=== PATIENT | male | born 1990 | race Caucasian/White ===

== ENCOUNTER 2016-12-21 00:40 | Emergency (ER) | payer OTHER ==
[2016-12-21 01:08] VITALS: BP 135/84; PULSE 64; TEMP 97.9; BMI 28.2
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
[2016-12-21] MEDS ORDERED: IBUPROFEN 600 MG TABLET (FP) PO ONE ×2 (02:56→03:02)
== END 2016-12-21 03:05 | disposition home or self-care (01) ==
LOC: JER 00:40
DX: S29.012A Strain of muscle and tendon of back wall of thorax, initial encounter (principal); S21.209A Unspecified open wound of unspecified back wall of thorax without penetration into thoracic cavity, initial encounter; V43.52XA Car driver injured in collision with other type car in traffic accident, initial encounter; Y92.414 Local residential or business street as the place of occurrence of the external cause; Y93.89 Activity, other specified; Y99.0 Civilian activity done for income or pay
CPT/HCPCS: 99281-25

== ENCOUNTER 2019-12-19 18:56 | Inpatient (IN) | payer BC, OTHER ==
[2019-12-19] MEDS ORDERED: SODIUM CHLORIDE 0.9% 500 ML INFUS.BAG IV ONE (19:33)
--- NOTE | 2019-12-19 19:33 | PDOC ---
Rapid Medical Evaluation Time Seen by Provider: 12/19/19 19:31 Medical Evaluation: Allergies Allergy/AdvReac Type Severity Reaction Status Date / Time No Known Allergies Allergy Verified 12/21/16 00:56 12/19/19 19:31 This patient had rapid medical evaluation in triage cc: sent by pmd due to abnormal lab results HPI: Patient reports sent to ed due to elevated b/p cpk and dark colored urine. Also reports bodyaches PE: NADF unlabored breathing heart s1s2, Orders: labs, iv access, ns bolus This patient will proceed to ed for further evaluation. Discharge Disposition - Diagnosis Abnormal laboratory test - Referrals - Patient Instructions - Post Discharge Activity
--- NOTE | 2019-12-19 21:49 | PDOC ---
*Physical Exam - Vital Signs Last Vital Signs Temp Pulse Resp BP Pulse Ox 98.5 F 91 H 19 149/82 96 12/19/19 19:29 12/19/19 19:29 12/19/19 19:29 12/19/19 19:29 12/19/19 19:29 ED Treatment Course - LABORATORY CBC & Chemistry Diagram: 12/19/19 21:45 12/19/19 21:45 Medical Decision Making - Medical Decision Making 12/19/19 21:49 Patient seen by the advanced practice provider under my supervision. Ancillary testing reviewed as necessary. I agree with plan as outlined by the advanced practice provider. Discharge - Discharge Information Problems reviewed: Yes Clinical Impression/Diagnosis: Elevated CPK, Muscle pain Rhabdomyolysis Qualifiers: Rhabdomyolysis type: non-traumatic Qualified Code(s): M62.82 - Rhabdomyolysis - Follow up/Referral Referrals: Garry Britton MD [Primary Care Provider] - - Patient Discharge Instructions - Post Discharge Activity
--- NOTE | 2019-12-19 22:00 | PDOC ---
History of Present Illness - General Chief Complaint: Abnormal Lab Results (Outside) Stated Complaint: SENT BY URGENT CARE/ ABNORMAL LABS Time Seen by Provider: 12/19/19 19:31 History Source: Patient - History of Present Illness Initial Comments: 12/19/19 21:58 29 year old male bodyaches for 1 weeks, patient reports having URI symptoms prior to that. Urine has been dark for 1 week. + nausea. patient reports that he went to urgent care who sent patient to the ER for elevated. CPK 40,000. 12/19/19 22:02 Past History - Past Medical History Allergies/Adverse Reactions: Allergies Allergy/AdvReac Type Severity Reaction Status Date / Time No Known Allergies Allergy Verified 12/21/16 00:56 Home Medications: Ambulatory Orders NK [No Known Home Medication] 12/21/16 COPD: No - Psycho Social/Smoking Cessation Hx Smoking History: Never smoked Have you smoked in the past 12 months: No Hx Alcohol Use: No Drug/Substance Use Hx: No Review of Systems - Review of Systems Able to Perform ROS?: Yes Is the patient limited Irish proficient: No Constitutional: Yes: Other (boduyaches) Respiratory: No: Symptoms reported, See HPI, Cough, Orthopnea, Shortness of Breath, SOB with Exertion, SOB at Rest, Stridor, Wheezing, Productive cough, Hemoptysis, Other ABD/GI: No: Symptoms Reported, See HPI, Abdominal Distended, Abd. Pain w/ defecation, Blood Streaked Bowels, Constipated, Diarrhea, Difficulty Swallowing , Nausea, Poor Appetite, Poor Fluid Intake, Rectal Bleeding, Vomiting, Indigestion, Abdominal cramping, Tarry Stools, Other Neurological: No: Symptoms reported, See HPI, Headache, Numbness, Paresthesia, Pre-Existing Deficit, Seizure, Tingling, Tremors, Weakness, Unsteady Gait, Ataxia, Dizziness, Other *Physical Exam - Vital Signs Last Vital Signs Temp Pulse Resp BP Pulse Ox 98.5 F 91 H 19 149/82 96 12/19/19 19:29 12/19/19 19:29 12/19/19 19:29 12/19/19 19:29 12/19/19 19:29 - Physical Exam General Appearance: Yes: Appropriately Dressed Respiratory/Chest: positive: Lungs Clear, Normal Breath Sounds Cardiovascular: positive: Regular Rhythm, Regular Rate Musculoskeletal: positive: Normal Inspection Extremity: positive: Normal Capillary Refill, Normal Inspection, Normal Range of Motion Integumentary: positive: Normal Color, Dry, Warm Neurologic: positive: Fully Oriented, Alert, Normal Mood/Affect ED Treatment Course - LABORATORY CBC & Chemistry Diagram: 12/19/19 21:45 12/19/19 21:45 - Medications Given in the ED: ED Medications Discontinued Medications Generic Name Dose Route Start Last Admin Trade Name Freq PRN Reason Stop Dose Admin Sodium Chloride 1,000 ml 12/19/19 19:33 12/19/19 21:49 Normal Saline - IV 12/19/19 19:34 1,000 ml ONCE ONE Administration Medical Decision Making - Medical Decision Making 12/19/19 22:01 A: rhabdomylosis P: cbc cardiac cmp UA IVF cardiac monitoring patient admitted under hospitalist service Discharge - Discharge Information Problems reviewed: Yes Clinical Impression/Diagnosis: Elevated CPK, Muscle pain Rhabdomyolysis Qualifiers: Rhabdomyolysis type: non-traumatic Qualified Code(s): M62.82 - Rhabdomyolysis - Admission Yes - Follow up/Referral - Patient Discharge Instructions - Post Discharge Activity
[2019-12-19 22:37] LABS: BASO % 0.6 % (0-2.0); EOS % 3.1 % (0-4.5); HEMATOCRIT 38.2 % (35.4-49); HEMOGLOBIN 12.9 GM/dL (11.7-16.9); LYMPH % 21.7 % (8-40); MCH 29.9 pg (25.7-33.7); MCHC 33.8 g/dl (32.0-35.9); MEAN CELL VOLUME 88.3 fl (80-96); MEAN PLT VOLUME 9.4 fl (7.5-11.1); MONO % 9.4 % (3.8-10.2); NEUT % 65.2 % (42.8-82.8); PLATELET COUNT 190 K/MM3 (134-434); RBC 4.32 M/mm3 (4.00-5.60); RDW 13.7 % (11.9-15.9); WHITE BLOOD COUNT 6.3 K/mm3 (4.0-10.0)
[2019-12-19 23:42] LABS: ALBUMIN 2.8 g/dl (3.4-5.0); ALK PHOS 55 U/L (45-117); ANION GAP 7 MMOL/L (8-16); BILIRUBIN,TOTAL 0.4 mg/dL (0.2-1); BLOOD UREA NITROGEN 15.6 mg/dL (7-18); CALCIUM 8.2 mg/dL (8.5-10.1); CHLORIDE 106 mmol/L (98-107); CO2 25 mmol/L (21-32); CREATININE 0.8 mg/dL (0.55-1.3); GLUCOSE,RANDOM 109 mg/dL (74-106); POTASSIUM 4.8 mmol/L (3.5-5.1); SGOT/AST 447 U/L (15-37); SGPT/ALT 281 U/L (13-61); SODIUM 138 mmol/L (136-145); TOT PROT 6.2 g/dl (6.4-8.2)
[2019-12-19] MEDS ORDERED: SODIUM CHLORIDE 1,000 ML IV SCH (23:45)
--- NOTE | 2019-12-20 02:23 | HP ---
CHIEF COMPLAINT: dark urine PCP: Garry Kellogg HISTORY OF PRESENT ILLNESS: 29 y.o. M no significant PMH presenting from [facility] urgent care for dark urine & CK in 40,000's. The patient endorsed having URI symptoms (son is sick contact ) for the past few days w/ generalized myalgias, fevers, chills. Today he says the URI has improved but the generalized myalgias persist, mainly in his lower extremities. Patient denies recent traumas/ falls/ pedestrian or MVA's/ stressful exercise events. 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 ER course was notable for: (1) 1L NS (2) CK >14,000 (3) Recent Travel: denies PAST MEDICAL HISTORY: none PAST SURGICAL HISTORY: none Social History: Smoking: denies Alcohol: denies Drugs: denies Allergies No Known Allergies Allergy (Verified 12/21/16 00:56) Family hx: father- lupus HOME MEDICATIONS: Home Medications Medication Instructions Recorded NK [No Known Home Medication] 12/21/16 REVIEW OF SYSTEMS CONSTITUTIONAL: Absent: fever, chills, diaphoresis, generalized weakness, malaise, loss of appetite, weight change HEENT: Absent: rhinorrhea, nasal congestion, throat pain, throat swelling, difficulty swallowing, mouth swelling, ear pain, eye pain, visual changes CARDIOVASCULAR: Absent: chest pain, syncope, palpitations, irregular heart rate, lightheadedness , peripheral edema RESPIRATORY: Absent: cough, shortness of breath, dyspnea with exertion, orthopnea, wheezing, stridor, hemoptysis GASTROINTESTINAL: Absent: abdominal pain, abdominal distension, nausea, vomiting, diarrhea, constipation, melena, hematochezia GENITOURINARY: dark yellow/brown urine Absent: dysuria, frequency, urgency, hesitancy, hematuria, flank pain, genital pain MUSCULOSKELETAL: Absent: myalgia, arthralgia, joint swelling, back pain, neck pain SKIN: Absent: rash, itching, pallor HEMATOLOGIC/IMMUNOLOGIC: Absent: easy bleeding, easy bruising, lymphadenopathy, frequent infections ENDOCRINE: Absent: unexplained weight gain, unexplained weight loss, heat intolerance, cold intolerance NEUROLOGIC: Absent: headache, focal weakness or paresthesias, dizziness, unsteady gait, seizure, mental status changes, bladder or bowel incontinence PSYCHIATRIC: Absent: anxiety, depression, suicidal or homicidal ideation, hallucinations. PHYSICAL EXAMINATION Vital Signs - 24 hr 12/19/19 19:29 Temperature 98.5 F Pulse Rate 91 H Respiratory 19 Rate Blood Pressure 149/82 O2 Sat by Pulse 96 Oximetry (%) GENERAL: Awake, alert, and fully oriented, in no acute distress. HEENT: NCAT. MMM. Conjunctiva clear. LUNGS: Breath sounds equal, clear to auscultation bilaterally. No wheezes, and no crackles. No accessory muscle use. HEART: Regular rate and rhythm, normal S1 and S2 without murmur, rub or gallop. ABDOMEN: Soft, nontender, not distended, normoactive bowel sounds. MUSCULOSKELETAL: Normal range of motion at all joints. Diffuse myalgias b/l LE > UE's. EXTREMITIES: 2+ pulses, warm, well-perfused. No cyanosis. No peripheral edema. NEUROLOGICAL: Cranial nerves II-XII intact. Normal speech. Normal gait. PSYCHIATRIC: Cooperative. Good eye contact. Appropriate mood and affect. SKIN: Warm, dry, normal turgor. No rashes/ lesions noted. Laboratory Results - last 24 hr Laboratory Last Values WBC 6.3 K/mm3 (4.0-10.0) 12/19/19 21:45 RBC 4.32 M/mm3 (4.00-5.60) 12/19/19 21:45 Hgb 12.9 GM/dL (11.7-16.9) 12/19/19 21:45 Hct 38.2 % (35.4-49) 12/19/19 21:45 MCV 88.3 fl (80-96) 12/19/19 21:45 MCH 29.9 pg (25.7-33.7) 12/19/19 21:45 MCHC 33.8 g/dl (32.0-35.9) 12/19/19 21:45 RDW 13.7 % (11.9-15.9) 12/19/19 21:45 Plt Count 190 K/MM3 (134-434) 12/19/19 21:45 MPV 9.4 fl (7.5-11.1) 12/19/19 21:45 Absolute Neuts (auto) 4.1 K/mm3 (1.5-8.0) 12/19/19 21:45 Neutrophils % 65.2 % (42.8-82.8) 12/19/19 21:45 Lymphocytes % 21.7 % (8-40) 12/19/19 21:45 Monocytes % 9.4 % (3.8-10.2) 12/19/19 21:45 Eosinophils % 3.1 % (0-4.5) 12/19/19 21:45 Basophils % 0.6 % (0-2.0) 12/19/19 21:45 Nucleated RBC % 0 % (0-0) 12/19/19 21:45 Sodium 138 mmol/L (136-145) 12/19/19 21:45 Potassium 4.8 mmol/L (3.5-5.1) 12/19/19 21:45 Chloride 106 mmol/L (98-107) 12/19/19 21:45 Carbon Dioxide 25 mmol/L (21-32) 12/19/19 21:45 Anion Gap 7 MMOL/L (8-16) L 12/19/19 21:45 BUN 15.6 mg/dL (7-18) 12/19/19 21:45 Creatinine 0.8 mg/dL (0.55-1.3) 12/19/19 21:45 Est GFR (CKD-EPI)AfAm 138.93 12/19/19 21:45 Est GFR (CKD-EPI)NonAf 119.87 12/19/19 21:45 Random Glucose 109 mg/dL (74-106) H 12/19/19 21:45 Calcium 8.2 mg/dL (8.5-10.1) L 12/19/19 21:45 Total Bilirubin 0.4 mg/dL (0.2-1) 12/19/19 21:45 AST 447 U/L (15-37) H 12/19/19 21:45 ALT 281 U/L (13-61) H 12/19/19 21:45 Alkaline Phosphatase 55 U/L (45-117) 12/19/19 21:45 Creatine Kinase > 99765 U/L (26-308) H 12/19/19 21:45 Creatine Kinase Index 0.0 % (0.0-5.0) 12/19/19 21:45 CK-MB (CK-2) 5.4 ng/mL (0.5-3.6) H 12/19/19 21:45 Troponin I 0.03 ng/ml (0.00-0.05) 12/19/19 21:45 Total Protein 6.2 g/dl (6.4-8.2) L 12/19/19 21:45 Albumin 2.8 g/dl (3.4-5.0) L 12/19/19 21:45 Urine Color Yellow 12/19/19 03:00 Urine Appearance Clear 12/19/19 03:00 Urine pH 6.0 (5.0-8.0) 12/19/19 03:00 Ur Specific [place] 1.010 (1.010-1.035) 12/19/19 03:00 Urine Protein Negative (NEGATIVE) 12/19/19 03:00 Urine Glucose (UA) Negative (NEGATIVE) 12/19/19 03:00 Urine Ketones Negative (NEGATIVE) 12/19/19 03:00 Urine Blood Negative (NEGATIVE) 12/19/19 03:00 Urine Nitrite Negative (NEGATIVE) 12/19/19 03:00 Urine Bilirubin Negative (NEGATIVE) 12/19/19 03:00 Urine Urobilinogen 0.2 mg/dL (0.2-1.0) 12/19/19 03:00 Ur Leukocyte Esterase Negative (NEGATIVE) 12/19/19 03:00 ASSESSMENT/PLAN: 29 y.o. M no past medical history presenting with acute rhabdomyolysis #Acute rhabdomyolysis -CK reported 40,000's @ urgent care, >14,000 in ED -S/p 3L IV fluids @ urgent care, 1 L in ED -continue IVF, NS @250mL/hr -f/u urine myoglobin, u-tox #Transaminitis -AST/ALT 447/281 -likely reactive 2/2 acute rhabdo -f/u AM LFT's #FEN -NS @250mL/hr, order 2 L NS boluses, patient is young male w/ good renal function -trend lytes replete prn -regular diet #PPX -dvt: heparin sq #Dispo med surg Visit type - Emergency Visit Emergency Visit: Yes ED Registration Date: 12/20/19 Care time: The patient presented to the Emergency Department on the above date and was hospitalized for further evaluation of their emergent condition. - New Patient This patient is new to me today: Yes Date on this admission: 12/20/19 - Critical Care Critical Care patient: No ATTENDING PHYSICIAN STATEMENT I saw and evaluated the patient. I reviewed the resident's note and discussed the case with the resident. I agree with the resident's findings and plan as documented. SUBJECTIVE: OBJECTIVE: ASSESSMENT AND PLAN:
--- NOTE | 2019-12-20 02:48 | PN ---
Teaching Attending Note Name of Resident: Danni Ramsey ATTENDING PHYSICIAN STATEMENT I saw and evaluated the patient. I reviewed the resident's note and discussed the case with the resident. I agree with the resident's findings and plan as documented. SUBJECTIVE: 29 year old male w/ bodyaches for 1 weeks, patient reports having URI symptoms prior to that. Urine has been dark for 1 week. + nausea. patient reports that he went to urgent care who sent patient to the ER for elevated. CPK 40,000. OBJECTIVE: Last Vital Signs Temp Pulse Resp BP Pulse Ox 98.5 F 91 H 19 149/82 96 12/19/19 19:29 12/19/19 19:29 12/19/19 19:29 12/19/19 19:29 12/19/19 19:29 GENERAL: Well developed, well nourished. Awake and alert. No acute distress. HEENT: Normocephalic, atraumatic. PERRLA, EOMI. No conjunctival pallor. Sclera are non- icteric. Moist mucous membranes. Oropharynx is clear. NECK: Supple. Full ROM. No JVD. Carotid pulses 2+ and symmetric, without bruits. No thyromegaly. No lymphadenopathy. CARDIOVASCULAR: Regular rate and rhythm. No murmurs, rubs, or gallops. Distal pulses are 2+ and symmetric. PULMONARY: No evidence of respiratory distress. Lungs clear to auscultation bilaterally. No wheezing, rales or rhonchi. ABDOMINAL: Soft. Non-tender. Non-distended. No rebound or guarding. No organomegaly. Normoactive bowel sounds. MUSCULOSKELETAL Normal range of motion at all joints. No bony deformities or tenderness. No CVA tenderness. EXTREMITIES: No cyanosis. No clubbing. No edema. No calf tenderness. SKIN: Warm and dry. Normal capillary refill. No rashes. No jaundice. PSYCHIATRIC: Cooperative. Good eye contact. Appropriate mood and affect. Abnormal Lab Results 12/19/19 21:45 Anion Gap 7 L Random Glucose 109 H Calcium 8.2 L AST 447 H ALT 281 H Creatine Kinase > 38826 H CK-MB (CK-2) 5.4 H Total Protein 6.2 L Albumin 2.8 L ASSESSMENT AND PLAN: #Rhabdomyolysis- Unknown cause. Suspect elevated AST and ALT may be from skeletal muscle breakdown. MedSurg IV fluid hydration Urine myoglobin Liver sonogram Trend CK #Hypoalbuminemia DVT prophylaxisheparin subcutaneously
[2019-12-20 03:20] LABS: URINE APPEARANCE CLEAR; URINE BILIRUBIN NEGATIVE (NEGATIVE); URINE COLOR YELLOW; URINE GLUCOSE (UA) NEGATIVE (NEGATIVE); URINE KETONE NEGATIVE (NEGATIVE); URINE LEUK ESTERASE NEGATIVE (NEGATIVE); URINE NITRITE NEGATIVE (NEGATIVE); URINE PROTEIN NEGATIVE (NEGATIVE); URINE UROBILINOGEN 0.2 mg/dL (0.2-1.0)
[2019-12-20] MEDS: SODIUM CHLORIDE 1,000 ML IV SCH ×4 (03:36→22:13)
[2019-12-20] MEDS ORDERED: HEPARIN NA (PORCINE) 5,000 UNITS/ML 1ML VIAL SQ ONE (03:47)
[2019-12-20] MEDS ORDERED: SODIUM CHLORIDE 1,000 ML IV STA ×2 (05:09→05:12)
[2019-12-20 05:11] LABS: COCAINE, UR NEGATIVE ng/ml (CUTOFF=300); METHADONE, UR NEGATIVE ng/ml (CUTOFF=300); OPIATES, URI NEGATIVE ng/ml (CUTOFF=300); PHENCYCLIDINE,URINE NEGATIVE ng/ml (CUTOFF=25); URINE AMPHETAMINES NEGATIVE ng/ml (CUTOFF=500); URINE BARBITURATES NEGATIVE ng/ml (CUTOFF=200); URINE BENZODIAZEPINES NEGATIVE ng/ml (CUTOFF=200)
[2019-12-20] MEDS ORDERED: HEPARIN NA (PORCINE) 5,000 UNITS/ML 1ML VIAL SQ SCH (06:00)
[2019-12-20 06:35] LABS: BASO % 0.9 % (0-2.0); EOS % 3.4 % (0-4.5); HEMATOCRIT 38.4 % (35.4-49); HEMOGLOBIN 12.9 GM/dL (11.7-16.9); LYMPH % 23.1 % (8-40); MCH 29.4 pg (25.7-33.7); MCHC 33.7 g/dl (32.0-35.9); MEAN CELL VOLUME 87.1 fl (80-96); MEAN PLT VOLUME 8.1 fl (7.5-11.1); MONO % 8.8 % (3.8-10.2); NEUT % 63.8 % (42.8-82.8); PLATELET COUNT 216 K/MM3 (134-434); RDW 13.4 % (11.9-15.9); WHITE BLOOD COUNT 4.3 K/mm3 (4.0-10.0)
[2019-12-20 07:01] LABS: ALK PHOS 43 U/L (45-117); ANION GAP 6 MMOL/L (8-16); BILIRUBIN,TOTAL 0.3 mg/dL (0.2-1); BLOOD UREA NITROGEN 13.1 mg/dL (7-18); CALCIUM 8.2 mg/dL (8.5-10.1); CHLORIDE 109 mmol/L (98-107); CO2 26 mmol/L (21-32); CREATININE 0.5 mg/dL (0.55-1.3); GLUCOSE,RANDOM 91 mg/dL (74-106); POTASSIUM 4.1 mmol/L (3.5-5.1); SGOT/AST 333 U/L (15-37); SGPT/ALT 259 U/L (13-61); SODIUM 141 mmol/L (136-145); TOT PROT 5.8 g/dl (6.4-8.2)
[2019-12-20 09:07] VITALS: BMI 28.4
[2019-12-20] MEDS ORDERED: FLU VACCINE QUAD 60 MCG/0.5 ML (MDV 19-20) IM ONE (09:07)
--- NOTE | 2019-12-20 10:33 | PN ---
Physical Exam: SUBJECTIVE: Patient seen and examined at bedside, feels comfortable, denying pain. VSS. OBJECTIVE: Vital Signs Period Temp Pulse Resp BP Sys/Ibarra Pulse Ox Last 24 Hr 98.5 F-98.7 F 83-91 18-19 132-149/76-86 96-98 GENERAL: Awake, alert, and fully oriented, in no acute distress. HEENT: NCAT. MMM. Conjunctiva clear. LUNGS: Breath sounds equal, clear to auscultation bilaterally. No wheezes, and no crackles. No accessory muscle use. HEART: Regular rate and rhythm, normal S1 and S2 without murmur, rub or gallop. ABDOMEN: Soft, nontender, not distended, normoactive bowel sounds. MUSCULOSKELETAL: Normal range of motion at all joints. No nodules around hands or wrists, good strength UE and LE. EXTREMITIES: 2+ pulses, warm, well-perfused. No cyanosis. No peripheral edema. NEUROLOGICAL: Cranial nerves II-XII intact. Normal speech. Normal gait. PSYCHIATRIC: Cooperative. Good eye contact. Appropriate mood and affect. SKIN: Warm, dry, normal turgor. No rashes/ lesions noted. Laboratory Results - last 24 hr 12/19/19 12/19/19 12/19/19 03:00 21:45 21:45 WBC 6.3 RBC 4.32 Hgb 12.9 Hct 38.2 MCV 88.3 MCH 29.9 MCHC 33.8 RDW 13.7 Plt Count 190 MPV 9.4 Absolute Neuts (auto) 4.1 Neutrophils % 65.2 Lymphocytes % 21.7 Monocytes % 9.4 Eosinophils % 3.1 Basophils % 0.6 Nucleated RBC % 0 ESR Sodium 138 Potassium 4.8 Chloride 106 Carbon Dioxide 25 Anion Gap 7 L BUN 15.6 Creatinine 0.8 Est GFR (CKD-EPI)AfAm 138.93 Est GFR (CKD-EPI)NonAf 119.87 Random Glucose 109 H Calcium 8.2 L Total Bilirubin 0.4 AST 447 H ALT 281 H Alkaline Phosphatase 55 Creatine Kinase > 48088 H Creatine Kinase Index 0.0 CK-MB (CK-2) 5.4 H Troponin I 0.03 C-Reactive Protein Total Protein 6.2 L Albumin 2.8 L TSH Urine Color Yellow Urine Appearance Clear Urine pH 6.0 Ur Specific [place] 1.010 Urine Protein Negative Urine Glucose (UA) Negative Urine Ketones Negative Urine Blood Negative Urine Nitrite Negative Urine Bilirubin Negative Urine Urobilinogen 0.2 Ur Leukocyte Esterase Negative Opiates Screen Methadone Screen Barbiturate Screen Phencyclidine Screen Ur Amphetamines Screen MDMA (Ecstasy) Screen Benzodiazepines Screen Cocaine Screen U Marijuana (THC) Screen Influenza A (Rapid) Influenza B (Rapid) RSV Rapid 12/20/19 12/20/19 12/20/19 04:25 06:10 06:10 WBC 4.3 RBC 4.40 Hgb 12.9 Hct 38.4 MCV 87.1 MCH 29.4 MCHC 33.7 RDW 13.4 Plt Count 216 MPV 8.1 D Absolute Neuts (auto) 2.7 Neutrophils % 63.8 Lymphocytes % 23.1 Monocytes % 8.8 Eosinophils % 3.4 Basophils % 0.9 Nucleated RBC % 0 ESR Sodium 141 Potassium 4.1 Chloride 109 H Carbon Dioxide 26 Anion Gap 6 L BUN 13.1 Creatinine 0.5 L Est GFR (CKD-EPI)AfAm 168.54 Est GFR (CKD-EPI)NonAf 145.42 Random Glucose 91 Calcium 8.2 L Total Bilirubin 0.3 AST 333 H ALT 259 H Alkaline Phosphatase 43 L Creatine Kinase > 18874 H Creatine Kinase Index 0.0 CK-MB (CK-2) 5.2 H Troponin I C-Reactive Protein 0.5 H Total Protein 5.8 L Albumin 3.0 L TSH 1.77 Urine Color Urine Appearance Urine pH Ur Specific [place] Urine Protein Urine Glucose (UA) Urine Ketones Urine Blood Urine Nitrite Urine Bilirubin Urine Urobilinogen Ur Leukocyte Esterase Opiates Screen Negative Methadone Screen Negative Barbiturate Screen Negative Phencyclidine Screen Negative Ur Amphetamines Screen Negative MDMA (Ecstasy) Screen Negative Benzodiazepines Screen Negative Cocaine Screen Negative U Marijuana (THC) Screen Negative Influenza A (Rapid) Influenza B (Rapid) RSV Rapid 12/20/19 12/20/19 12/20/19 06:10 09:30 09:30 WBC RBC Hgb Hct MCV MCH MCHC RDW Plt Count MPV Absolute Neuts (auto) Neutrophils % Lymphocytes % Monocytes % Eosinophils % Basophils % Nucleated RBC % ESR 9 Sodium Potassium Chloride Carbon Dioxide Anion Gap BUN Creatinine Est GFR (CKD-EPI)AfAm Est GFR (CKD-EPI)NonAf Random Glucose Calcium Total Bilirubin AST ALT Alkaline Phosphatase Creatine Kinase Creatine Kinase Index CK-MB (CK-2) Troponin I C-Reactive Protein Total Protein Albumin TSH Urine Color Urine Appearance Urine pH Ur Specific [place] Urine Protein Urine Glucose (UA) Urine Ketones Urine Blood Urine Nitrite Urine Bilirubin Urine Urobilinogen Ur Leukocyte Esterase Opiates Screen Methadone Screen Barbiturate Screen Phencyclidine Screen Ur Amphetamines Screen MDMA (Ecstasy) Screen Benzodiazepines Screen Cocaine Screen U Marijuana (THC) Screen Influenza A (Rapid) Negative Influenza B (Rapid) Negative RSV Rapid Negative Active Medications Generic Name Dose Route Start Last Admin Trade Name Elif PRN Reason Stop Dose Admin Sodium Chloride 1,000 mls @ 250 mls/hr 12/20/19 03:21 12/20/19 03:36 Normal Saline - IV 250 mls/hr ASDIR DAR Administration ASSESSMENT/PLAN: 29 y.o. M no significant PMHx admitted for acute rhabdomyolysis following a URI. Acute rhabdomyolysis CK reported 40,000's @ urgent care, >14,000 in ED, trending down with IV hydration, CRE stable Cont. aggressive hydration, spoke with pt. denies use of OTC herbs/supplements, occasionally takes Turmeric powder? Utox neg. follow myoglobin, obtain Leptospira IgM, legionella/FLU/RSV Transaminitis reactive from underlying rhabdo Tbil WNL indicating reserved liver function, cont. to trend, IVF Dvt ppx: heparin sq Med surg Visit type - Emergency Visit Emergency Visit: Yes ED Registration Date: 12/20/19 Care time: The patient presented to the Emergency Department on the above date and was hospitalized for further evaluation of their emergent condition. - New Patient This patient is new to me today: Yes Date on this admission: 12/20/19 - Critical Care Critical Care patient: No - Discharge Referral Referred to [facility] Med [facility] No
--- NOTE | 2019-12-20 13:02 | EKG ---
Test Reason : Blood Pressure : / mmHG Vent. Rate : 084 BPM Atrial Rate : 084 BPM P-R Int : 158 ms QRS Dur : 096 ms QT Int : 376 ms P-R-T Axes : 038 066 024 degrees QTc Int : 444 ms NORMAL SINUS RHYTHM NORMAL ECG NO PREVIOUS ECGS AVAILABLE Confirmed by Raj Davis MD ([id number]) on 12/20/2019 1:01:43 PM Referred By: Confirmed By:Rja Davis MD
[2019-12-21] MEDS: SODIUM CHLORIDE 1,000 ML IV SCH ×6 (02:02→23:50)
--- NOTE | 2019-12-21 07:25 | PN ---
Progress Note, Physician History of Present Illness: 29 year old male w/ bodyaches for 1 weeks, patient reports having URI symptoms prior to that. Urine has been dark for 1 week. + nausea. patient reports that he went to urgent care who sent patient to the ER for elevated. CPK 40,000. - Current Medication List Current Medications: Active Medications Acetaminophen (Tylenol -) 650 mg PO Q6H PRN PRN Reason: Fever Or Pain Sodium Chloride (Normal Saline -) 1,000 mls @ 250 mls/hr IV ASDIR DAR Last Admin: 12/21/19 05:44 Dose: 250 mls/hr - Objective Vital Signs: Vital Signs Temperature 98.5 F 12/21/19 02:00 Pulse Rate 80 12/21/19 02:00 Respiratory Rate 18 12/21/19 02:00 Blood Pressure 158/78 12/21/19 02:00 O2 Sat by Pulse Oximetry (%) 97 12/20/19 22:00 Labs: CBC, BMP 12/20/19 06:10 12/20/19 06:10 Problem List - Problems (1) Prophylactic measure Code(s): Z29.9 - ENCOUNTER FOR PROPHYLACTIC MEASURES, UNSPECIFIED (2) Transaminitis Code(s): R74.0 - NONSPEC ELEV OF LEVELS OF TRANSAMNS & LACTIC ACID DEHYDRGNSE (3) Rhabdomyolysis Code(s): M62.82 - RHABDOMYOLYSIS Qualifiers: Rhabdomyolysis type: non-traumatic Qualified Code(s): M62.82 - Rhabdomyolysis
[2019-12-21] MEDS: ACETAMINOPHEN 325 MG TABLET (FP) PO PRN (08:00)
[2019-12-21] MEDS ORDERED: FLU VACCINE QUAD 60 MCG/0.5 ML (MDV 19-20) IM ONE ×2 (08:00→08:15)
[2019-12-21 10:37] LABS: ALBUMIN 2.8 g/dl (3.4-5.0); BILIRUBIN,DIRECT 0.1 mg/dL (0.0-0.2); BILIRUBIN,TOTAL 0.3 mg/dL (0.2-1); BLOOD UREA NITROGEN 9.8 mg/dL (7-18); CALCIUM 8.2 mg/dL (8.5-10.1); CREATININE 0.5 mg/dL (0.55-1.3); POTASSIUM 4.1 mmol/L (3.5-5.1); TOT PROT 5.9 g/dl (6.4-8.2)
--- NOTE | 2019-12-21 17:19 | PN ---
Progress Note, Physician History of Present Illness: Patient seen and examined at bedside. Reports less muscle pain but still some soreness in his legs and buttocks. CPK and LFTs improving. Denies nausea vomiting fever chills chest pain SOB diarrhea or constipation. Endorses dry cough. - Current Medication List Current Medications: Active Medications Acetaminophen (Tylenol -) 650 mg PO Q6H PRN PRN Reason: Fever Or Pain Last Admin: 12/21/19 08:00 Dose: 650 mg Sodium Chloride (Normal Saline -) 1,000 mls @ 250 mls/hr IV ASDIR DAR Last Admin: 12/21/19 14:00 Dose: 250 mls/hr - Objective Vital Signs: Vital Signs Temperature 98.5 F 12/21/19 16:39 Pulse Rate 86 12/21/19 16:39 Respiratory Rate 20 12/21/19 16:39 Blood Pressure 148/82 12/21/19 16:39 O2 Sat by Pulse Oximetry (%) 97 12/20/19 22:00 Constitutional: Yes: Well Nourished, No Distress, Calm Eyes: Yes: Conjunctiva Clear HENT: Yes: Atraumatic Neck: Yes: Supple Cardiovascular: Yes: Regular Rate and Rhythm Respiratory: Yes: Regular, CTA Bilaterally Gastrointestinal: Yes: Soft Musculoskeletal: Yes: Other (minimal tenderness of left thigh). No: Muscle Weakness Edema: No Neurological: Yes: Alert, Oriented Psychiatric: Yes: Alert, Oriented Labs: CBC, BMP 12/20/19 06:10 12/21/19 08:37 Impression/Plan Impression/Plan: 29M p/w muscle pain found to have acute rhabdomyolysis following a URI. Acute rhabdomyolysis CPK trending down now 6900 today from >14,000 for past couple of days. Reportedly 40,000 in urgent care micro Work-up including BCx flu swab and urinary antigens negative so far continue IVF trend CPK and LFTs SHADIA screen pending RSV negative Utox negative denies supplements Transaminitis Improving Trend LFTs Dvt ppx: heparin sq Visit type - Emergency Visit Emergency Visit: Yes ED Registration Date: 12/20/19 Care time: The patient presented to the Emergency Department on the above date and was hospitalized for further evaluation of their emergent condition. - New Patient This patient is new to me today: Yes Date on this admission: 12/21/19 - Critical Care Critical Care patient: No
[2019-12-21] MEDS: guaiFENesin/CODEINE 5 ML UNIT-DOSE CUPS PO PRN (20:27)
[2019-12-22] MEDS: SODIUM CHLORIDE 1,000 ML IV SCH ×5 (03:57→20:57)
--- NOTE | 2019-12-22 09:14 | PN ---
Physical Exam: SUBJECTIVE: Patient seen and examined. He reports persistent soreness in his legs. OBJECTIVE: Vital Signs Period Temp Pulse Resp BP Sys/Ibarra Pulse Ox Last 24 Hr 97.5 F-98.5 F 73-86 18-20 138-148/82-87 95 GENERAL: The patient is awake, alert, and fully oriented, in no acute distress. LUNGS: Breath sounds equal, clear to auscultation bilaterally, no wheezes, no crackles, no accessory muscle use. HEART: Regular rate and rhythm, S1, S2 without murmur, rub or gallop. ABDOMEN: Soft, nontender, nondistended, normoactive bowel sounds, no guarding, no rebound, no hepatosplenomegaly, no masses. EXTREMITIES: 2+ pulses, warm, well-perfused, no edema. Laboratory Results - last 24 hr 12/20/19 12/21/19 06:10 08:37 Sodium 143 Potassium 4.1 Chloride 110 H Carbon Dioxide 27 Anion Gap 5 L BUN 9.8 Creatinine 0.5 L Est GFR (CKD-EPI)AfAm 168.54 Est GFR (CKD-EPI)NonAf 145.42 Random Glucose 98 Calcium 8.2 L Total Bilirubin 0.3 Direct Bilirubin 0.1 AST 170 H ALT 220 H Alkaline Phosphatase 57 Creatine Kinase 6926 H Creatine Kinase Index 0.0 CK-MB (CK-2) 6.4 H Total Protein 5.9 L Albumin 2.8 L SHADIA Screen Negative Active Medications Generic Name Dose Route Start Last Admin Trade Name Freq PRN Reason Stop Dose Admin Acetaminophen 650 mg 12/21/19 07:08 12/21/19 08:00 Tylenol - PO 650 mg Q6H PRN Administration Fever Or Pain Guaifenesin/Codeine Phosphate 5 ml 12/21/19 17:17 12/21/19 20:27 Robitussin Ac - PO 5 ml TID PRN Administration COUGH Sodium Chloride 1,000 mls @ 250 mls/hr 12/20/19 03:21 12/22/19 07:26 Normal Saline - IV 250 mls/hr ASDIR DAR Administration ASSESSMENT/PLAN: This is a 29 year old man with no significant medical history who presented to the ED with fever, chills, and myalgias. 1. Rhabdomyolysis - Improving - Continue IV fluid - SHADIA negative 2. Hepatic transaminitis - Improving Visit type - Emergency Visit Emergency Visit: Yes ED Registration Date: 12/20/19 Care time: The patient presented to the Emergency Department on the above date and was hospitalized for further evaluation of their emergent condition. - New Patient This patient is new to me today: Yes Date on this admission: 12/22/19 - Critical Care Critical Care patient: No - Discharge Referral Referred to [facility] No
[2019-12-22 09:32] LABS: ALBUMIN 2.9 g/dl (3.4-5.0); BILIRUBIN,TOTAL 0.3 mg/dL (0.2-1); BLOOD UREA NITROGEN 13.8 mg/dL (7-18); CALCIUM 8.5 mg/dL (8.5-10.1); CREATININE 0.5 mg/dL (0.55-1.3); TOT PROT 5.8 g/dl (6.4-8.2)
[2019-12-22] MEDS: guaiFENesin/CODEINE 5 ML UNIT-DOSE CUPS PO PRN (11:39)
[2019-12-23] MEDS: SODIUM CHLORIDE 1,000 ML IV SCH ×4 (01:16→09:56)
[2019-12-23] MEDS: ACETAMINOPHEN 325 MG TABLET (FP) PO PRN (01:26)
[2019-12-23] MEDS: guaiFENesin/CODEINE 5 ML UNIT-DOSE CUPS PO PRN (09:55)
[2019-12-23 10:09] LABS: BILIRUBIN,TOTAL 0.4 mg/dL (0.2-1); BLOOD UREA NITROGEN 14.7 mg/dL (7-18); CALCIUM 8.2 mg/dL (8.5-10.1); CREATININE 0.6 mg/dL (0.55-1.3); POTASSIUM 4.1 mmol/L (3.5-5.1)
[2019-12-23 11:19] VITALS: BP 141/89; PULSE 76; TEMP 98.5
--- NOTE | 2019-12-23 13:45 | DS ---
Physical Examination Vital Signs: Vital Signs Temperature 98.5 F 12/23/19 10:18 Pulse Rate 76 12/23/19 10:18 Respiratory Rate 18 12/23/19 10:18 Blood Pressure 141/89 12/23/19 10:18 O2 Sat by Pulse Oximetry (%) 98 12/22/19 21:00 Findings/Remarks: Constitutional: Yes: Well Nourished, No Distress, Calm Eyes: Yes: Conjunctiva Clear HENT: Yes: Atraumatic Neck: Yes: Supple Cardiovascular: Yes: Regular Rate and Rhythm Respiratory: Yes: Regular, CTA Bilaterally Gastrointestinal: Yes: Soft Musculoskeletal: No: Tenderness. No: Muscle Weakness Edema: No Neurological: Yes: Alert, Oriented Psychiatric: Yes: Alert, Oriented Labs: CBC, BMP 12/20/19 06:10 12/23/19 06:00 Discharge Summary Problems reviewed: Yes Reason For Visit: MUSCLE PAIN, ELEVATED CREATINE KINASE LEVEL Current Active Problems Elevated CPK (Acute) Muscle pain (Acute) Prophylactic measure (Acute) Rhabdomyolysis (Acute) Transaminitis (Acute) Hospital Course: 29M no PMH who presented with muscle pain weakness and change in the color of his urine after an Upper respiratory infection. He went to urgent care and apparently CPK was 40,000. Found to be elevated here >14,000 (machine does not read more than this). He was started on IVF and his CPK trended down. He also had transaminitis which also has been trending down. Today CPK is 2057 and patient will be discharged home. Advised to drink 3-4 liters per day until he sees his PCP within 1 week to have CPK and LFTs checked. I spent 33 minutes on this discharge Condition: Improved - Instructions Diet, Activity, Other Instructions: You were hospitalized for a condition called rhabdomyolysis that happened after a respiratory infection. Drink plenty of water at home. Try to drink 3-4 liters per day. Follow up with your primary care doctor within 1 week to check you liver enzymes and your Creatinine kinase level to make sure they are heading in the right direction. If you have worsening of your symptoms or nausea vomiting fever chills chest pain shortness of breath change in the color of your urine or muscle pain call your doctor or go to the nearest emergency room. Referrals: Garry Britton MD [Primary Care Provider] - 1 Week (follow up within a week to have your labs checked) Disposition: HOME - Home Medications Comprehensive Discharge Medication List: Ambulatory Orders NK [No Known Home Medication] 12/21/16 This patient is new to me today: No Emergency Visit: Yes ED Registration Date: 12/20/19 Care time: The patient presented to the Emergency Department on the above date and was hospitalized for further evaluation of their emergent condition. Critical Care patient: No - Discharge Referral Referred to [facility] No
== END 2019-12-23 15:05 | disposition home or self-care (01) | DRG 558 ==
LOC: JER 18:56 → JERBED 12-20 00:56 → J5S 12-20 07:22
PROVIDERS: ADMIT Internal Medicine; ATTEND Internal Medicine
DX: M62.82 Rhabdomyolysis (principal); R74.0 Nonspecific elevation of levels of transaminase and lactic acid dehydrogenase [LDH]; J06.9 Acute upper respiratory infection, unspecified; E88.09 Other disorders of plasma-protein metabolism, not elsewhere classified
CPT/HCPCS: 36415; 71046-TC-FY; 80048; 80053; 80076; 80307; 81003; 82550; 82553; 83874; 84443; 84484; 85025; 85651; 86038; 86140; 87040; 87804; 87807; 87899; 93005; 93010; 97116-GP; 97161-GP; 99285-25; G0008; J7030; Q2036

== ENCOUNTER 2021-11-12 13:20 | Emergency (ER) | payer OTHER ==
[2021-11-12 13:37] VITALS: BP 164/88; PULSE 78; TEMP 98; BMI 31.6
[2021-11-12 14:39] LABS: ALBUMIN 4.9 g/dl (3.4-5.0); BILIRUBIN,TOTAL 0.7 mg/dl (0.2-1); CALCIUM 9.6 mg/dl (8.5-10); CREATININE 0.7 mg/dl (0.55-1.3); TOT PROT 8.3 g/dl (6.4-8.2)
[2021-11-12 16:14] LABS: BASO % 0.3 % (0-2.0); EOS % 0.9 % (0-4.5); HEMATOCRIT 44.7 % (35.4-49); HEMOGLOBIN 15.3 GM/dL (11.7-16.9); LYMPH % 24.8 % (8-40); MCH 29.4 pg (25.7-33.7); MCHC 34.1 g/dl (32.0-35.9); MEAN CELL VOLUME 86.1 fl (80-96); MONO % 8.4 % (3.8-10.2); NEUT % 65.6 % (42.8-82.8); RBC 5.19 M/mm3 (4.00-5.60); RDW 13.7 % (11.9-15.9); WHITE BLOOD COUNT 4.1 K/mm3 (4.0-10.0)
[2021-11-12 18:09] LABS: PLATELET ESTIMATE DECREASED
[2021-11-12 18:10] LABS: MEAN PLT VOLUME 9.3 fl (7.5-11.1); PLATELET COUNT 133 10^3/uL (134-434)
[2021-11-16 14:33] LABS: HIV INTERPRETATION NEGATIVE (NEGATIVE)
== END 2021-11-12 14:24 | disposition home or self-care (01) ==
LOC: FER 13:20
DX: S61.239A Puncture wound without foreign body of unspecified finger without damage to nail, initial encounter (principal); S61.031A Puncture wound without foreign body of right thumb without damage to nail, initial encounter
CPT/HCPCS: 36415; 80053; 85025; 86803; 87389; 99283-25

== ENCOUNTER 2022-07-07 11:09 | Inpatient (IN) | payer BC, OTHER ==
[2022-07-07] MEDS ORDERED: SODIUM CHLORIDE 1,000 ML IV STA (13:36)
[2022-07-07 14:57] LABS: BASO % 0.6 % (0-2.0); EOS % 2.4 % (0-4.5); HEMATOCRIT 43.8 % (35.4-49); HEMOGLOBIN 14.7 GM/dL (11.7-16.9); LYMPH % 28.9 % (8-40); MCH 29.2 pg (25.7-33.7); MCHC 33.7 g/dl (32.0-35.9); MEAN CELL VOLUME 86.6 fl (80-96); MEAN PLT VOLUME 8.5 fl (7.5-11.1); MONO % 11.2 % (3.8-10.2); NEUT % 56.9 % (42.8-82.8); PLATELET COUNT 168 10^3/uL (134-434); RBC 5.06 M/mm3 (4.00-5.60); RDW 13.4 % (11.9-15.9); WHITE BLOOD COUNT 4.6 K/mm3 (4.0-10.0)
[2022-07-07 15:01] LABS: EPI CELLS 5 /uL (0-25.1); HYALINE CASTS 0 /uL (0-3.1); PH,URINE 7.5 (5.0-8.0); URINE APPEARANCE CLEAR; URINE BACTERIA 6 /uL (0-1359); URINE BILIRUBIN NEGATIVE (NEGATIVE); URINE COLOR YELLOW; URINE GLUCOSE (UA) NEGATIVE (NEGATIVE); URINE KETONE NEGATIVE (NEGATIVE); URINE LEUK ESTERASE NEGATIVE (NEGATIVE); URINE NITRITE NEGATIVE (NEGATIVE); URINE PROTEIN 1+ (NEGATIVE); URINE RBC 2 /uL (0-23.9); URINE UROBILINOGEN 0.2 mg/dL (0.2-1.0); URINE WBC 2 /uL (0-25.8)
[2022-07-07 15:14] LABS: CHLORIDE 105 mmol/L (98-107); SODIUM 139 mmol/L (136-145)
[2022-07-07 15:17] LABS: ALBUMIN 3.7 g/dl (3.4-5.0); ANION GAP 5 MMOL/L (8-16); CALCIUM 9.3 mg/dL (8.5-10.1); CO2 30 mmol/L (21-32)
[2022-07-07 15:18] LABS: BLOOD UREA NITROGEN 12.2 mg/dL (7-18); GLUCOSE,RANDOM 78 mg/dL (74-106)
[2022-07-07 15:19] LABS: CREATININE 0.6 mg/dL (0.55-1.3)
[2022-07-07 15:20] LABS: SGOT/AST 678 U/L (15-37); SGPT/ALT 277 U/L (13-61)
[2022-07-07 15:22] LABS: BILIRUBIN,TOTAL 0.5 mg/dL (0.2-1); TOT PROT 7.3 g/dl (6.4-8.2)
[2022-07-07 15:23] LABS: ALK PHOS 61 U/L (45-117)
[2022-07-07] MEDS: SODIUM CHLORIDE 1,000 ML IV SCH ×2 (18:04→22:46)
[2022-07-07 20:57] VITALS: BMI 31.6
[2022-07-08] MEDS: SODIUM CHLORIDE 1,000 ML IV SCH ×4 (03:45→20:23)
[2022-07-08] MEDS ORDERED: MENTHOL/PHENOL 1 EACH UD MM ONE ×2 (05:40→21:20)
[2022-07-08 09:42] LABS: CHLORIDE 108 mmol/L (98-107); SODIUM 140 mmol/L (136-145)
[2022-07-08 09:55] LABS: CALCIUM 8.3 mg/dL (8.5-10.1)
[2022-07-08 09:57] LABS: ANION GAP 6 MMOL/L (8-16); BLOOD UREA NITROGEN 10.8 mg/dL (7-18); CO2 27 mmol/L (21-32); GLUCOSE,RANDOM 94 mg/dL (74-106)
[2022-07-08 10:00] LABS: CREATININE 0.4 mg/dL (0.55-1.3); SGOT/AST 358 U/L (15-37); SGPT/ALT 205 U/L (13-61)
[2022-07-08 10:01] LABS: ALK PHOS 47 U/L (45-117); BILIRUBIN,TOTAL 0.6 mg/dL (0.2-1); TOT PROT 5.8 g/dl (6.4-8.2)
[2022-07-08] MEDS ORDERED: ACETAMINOPHEN 325 MG TABLET (FP) PO PRN (16:55)
[2022-07-08] MEDS: HEPARIN NA (PORCINE) 5,000 UNITS/ML 1ML VIAL SQ SCH (21:41)
[2022-07-09] MEDS: SODIUM CHLORIDE 1,000 ML IV SCH ×4 (01:21→17:25)
[2022-07-09] MEDS: HEPARIN NA (PORCINE) 5,000 UNITS/ML 1ML VIAL SQ SCH ×2 (09:14→21:26)
[2022-07-09] MEDS ORDERED: BENZOCAINE/MENTH/CETYLPYRD CL 1 EACH LOZENGE MM PRN (14:18)
[2022-07-09 15:04] LABS: CALCIUM 8.7 mg/dL (8.5-10.1)
[2022-07-09 15:05] LABS: ALBUMIN 3.1 g/dl (3.4-5.0); BLOOD UREA NITROGEN 9.8 mg/dL (7-18)
[2022-07-09 15:07] LABS: BILIRUBIN,TOTAL 0.5 mg/dL (0.2-1); TOT PROT 6.2 g/dl (6.4-8.2)
[2022-07-09 15:08] LABS: CREATININE 0.5 mg/dL (0.55-1.3)
[2022-07-10] MEDS: SODIUM CHLORIDE 1,000 ML IV SCH ×4 (06:59→22:19)
[2022-07-10 09:02] LABS: BASO % 0.9 % (0-2.0); EOS % 4.5 % (0-4.5); HEMATOCRIT 40.2 % (35.4-49); HEMOGLOBIN 13.3 GM/dL (11.7-16.9); LYMPH % 30.6 % (8-40); MCH 28.8 pg (25.7-33.7); MEAN PLT VOLUME 8.8 fl (7.5-11.1); MONO % 11.1 % (3.8-10.2); NEUT % 52.9 % (42.8-82.8); PLATELET COUNT 219 10^3/uL (134-434); RBC 4.62 M/mm3 (4.00-5.60); RDW 13.1 % (11.9-15.9); WHITE BLOOD COUNT 3.7 K/mm3 (4.0-10.0)
[2022-07-10 09:30] LABS: CALCIUM 8.4 mg/dL (8.5-10.1)
[2022-07-10 09:31] LABS: BLOOD UREA NITROGEN 12.6 mg/dL (7-18)
[2022-07-10 09:34] LABS: CREATININE 0.5 mg/dL (0.55-1.3)
[2022-07-10 09:36] LABS: BILIRUBIN,TOTAL 0.5 mg/dL (0.2-1); TOT PROT 5.9 g/dl (6.4-8.2)
[2022-07-10] MEDS: HEPARIN NA (PORCINE) 5,000 UNITS/ML 1ML VIAL SQ SCH ×2 (10:28→21:25)
[2022-07-11] MEDS: SODIUM CHLORIDE 1,000 ML IV SCH (05:58)
[2022-07-11 07:09] VITALS: BP 136/75; PULSE 69; TEMP 97.7
[2022-07-11 08:20] LABS: BASO % 0.6 % (0-2.0); EOS % 4.2 % (0-4.5); HEMATOCRIT 40.1 % (35.4-49); HEMOGLOBIN 13.8 GM/dL (11.7-16.9); LYMPH % 30.5 % (8-40); MCHC 34.4 g/dl (32.0-35.9); MEAN CELL VOLUME 87.2 fl (80-96); MEAN PLT VOLUME 7.5 fl (7.5-11.1); MONO % 11.6 % (3.8-10.2); NEUT % 53.1 % (42.8-82.8); PLATELET COUNT 223 10^3/uL (134-434); RDW 13.5 % (11.9-15.9); WHITE BLOOD COUNT 4.1 K/mm3 (4.0-10.0)
[2022-07-11 08:52] VITALS: RESP 16
[2022-07-11 09:05] LABS: BLOOD UREA NITROGEN 15.2 mg/dL (7-18); CALCIUM 8.8 mg/dL (8.5-10.1)
[2022-07-11 09:06] LABS: ALBUMIN 3.1 g/dl (3.4-5.0)
[2022-07-11 09:08] LABS: CREATININE 0.6 mg/dL (0.55-1.3)
[2022-07-11 09:10] LABS: BILIRUBIN,TOTAL 0.3 mg/dL (0.2-1); TOT PROT 6.2 g/dl (6.4-8.2)
[2022-07-11] MEDS: HEPARIN NA (PORCINE) 5,000 UNITS/ML 1ML VIAL SQ SCH (10:13)
== END 2022-07-11 13:07 | disposition home or self-care (01) | DRG 558 ==
LOC: JER 11:09 → JERBED 16:06 → J7W 20:42
PROVIDERS: ADMIT Internal Medicine; ATTEND Nurse Practitioner Family
DX: M62.82 Rhabdomyolysis (principal); R74.8 Abnormal levels of other serum enzymes; R31.9 Hematuria, unspecified; R80.9 Proteinuria, unspecified
CPT/HCPCS: 0241U-QW; 36415; 76705-TC; 76775-TC; 80053; 81003; 82550; 82553; 85025; 87086; 93005; 93010; 99285-25; J1644

== ENCOUNTER 2022-09-30 15:20 | Emergency (ER) | payer OTHER, BC ==
[2022-09-30] MEDS ORDERED: IBUPROFEN 400 MG TABLET (FP) PO ONE ×2 (15:24→15:50)
[2022-09-30 15:35] VITALS: BP 127/81; PULSE 76; RESP 18; TEMP 98; BMI 30.3
== END 2022-09-30 16:35 | disposition home or self-care (01) ==
LOC: FER 15:20
DX: M54.50 Low back pain, unspecified (principal)
CPT/HCPCS: 99283-25

== ENCOUNTER 2023-02-23 23:20 | Emergency (ER) | payer OTHER ==
[2023-02-24 00:07] VITALS: BP 124/85; PULSE 70; RESP 17; TEMP 98; BMI 29.7
== END 2023-02-24 00:09 | disposition home or self-care (01) ==
LOC: FER 23:20
DX: S89.91XA Unspecified injury of right lower leg, initial encounter (principal); M25.532 Pain in left wrist; S63.502A Unspecified sprain of left wrist, initial encounter; W18.30XA Fall on same level, unspecified, initial encounter
CPT/HCPCS: 73562-TC-RT-FY; 99283-25

== ENCOUNTER 2023-08-17 01:05 | Emergency (ER) | payer OTHER ==
[2023-08-17 01:12] VITALS: BP 138/89; PULSE 100; RESP 19; TEMP 99.1; BMI 31.6
[2023-08-17] MEDS ORDERED: IBUPROFEN 600 MG TABLET (FP) PO ONE ×2 (01:18→01:21)
== END 2023-08-17 01:53 | disposition home or self-care (01) ==
LOC: FER 01:05
DX: M79.641 Pain in right hand (principal); S60.221A Contusion of right hand, initial encounter; R22.31 Localized swelling, mass and lump, right upper limb; W22.8XXA Striking against or struck by other objects, initial encounter
CPT/HCPCS: 73130-TC-RT-FY; 99283-25

== ENCOUNTER 2024-01-06 12:37 | Emergency (ER) | payer OTHER ==
[2024-01-06 12:58] VITALS: BP 148/84; PULSE 77; RESP 16; TEMP 98.9; BMI 32.3
== END 2024-01-06 14:14 | disposition home or self-care (01) ==
LOC: FER 12:37
DX: M25.561 Pain in right knee (principal); M25.562 Pain in left knee; R07.89 Other chest pain; W51.XXXA Accidental striking against or bumped into by another person, initial encounter
CPT/HCPCS: 73562-TC-LT-FY; 73562-TC-RT-FY; 93005; 99284-25

== ENCOUNTER 2024-03-23 10:01 | Emergency (ER) | payer OTHER, BC ==
[2024-03-23 10:16] VITALS: BP 117/79; PULSE 66; RESP 20; TEMP 98.3; BMI 29.7
== END 2024-03-23 11:46 | disposition home or self-care (01) ==
LOC: FER 10:01
DX: M54.50 Low back pain, unspecified (principal); M54.6 Pain in thoracic spine; W51.XXXA Accidental striking against or bumped into by another person, initial encounter
CPT/HCPCS: 72070-TC-FY; 72100-TC-FY; 99284-25

== ENCOUNTER 2024-04-23 13:48 | Emergency (ER) | payer OTHER, BC ==
[2024-04-23] MEDS ORDERED: IBUPROFEN 600 MG TABLET (FP) PO ONE (14:02)
[2024-04-23] MEDS: IBUPROFEN 600 MG TABLET (FP) PO ONE (14:03)
[2024-04-23 14:10] VITALS: BP 126/84; PULSE 79; RESP 18; TEMP 97.9; BMI 30.3
[2024-04-23] MEDS ORDERED: DIPHTH,PERTUSS(ACELL),TET 0.5 ML DISP.SYRIN IM ONE (15:51)
[2024-04-23] MEDS: DIPHTH,PERTUSS(ACELL),TET 0.5 ML DISP.SYRIN IM ONE (15:56)
== END 2024-04-23 16:15 | disposition home or self-care (01) ==
LOC: FER 13:48
PROC: 3E0234Z Introduction of Serum, Toxoid and Vaccine into Muscle, Percutaneous Approach (ICD-10-PCS; principal; 2024-04-23)
DX: M79.641 Pain in right hand (principal); Z23 Encounter for immunization
CPT/HCPCS: 73110-TC-RT-FY; 73130-TC-RT-FY; 90715; 99283-25

== ENCOUNTER 2024-07-17 05:30 | Emergency (ER) | payer OTHER ==
[2024-07-17 05:36] VITALS: BP 148/91; PULSE 72; RESP 18; TEMP 99.3; BMI 30.3
== END 2024-07-17 05:56 | disposition home or self-care (01) ==
LOC: FER 05:30
DX: Z77.21 Contact with and (suspected) exposure to potentially hazardous body fluids (principal); Y35.811A Legal intervention involving manhandling, law enforcement official injured, initial encounter
CPT/HCPCS: 99283-25

== ENCOUNTER 2024-12-15 04:31 | Day surgery (SDC) | payer BC, OTHER ==
[2024-12-09 12:18] VITALS: BMI 30.8
[2024-12-15] MEDS ORDERED: LIDOCAINE HCL/PF 1% SDV 5ML VIAL ONE (07:24)
[2024-12-15] MEDS ORDERED: LIDOCAINE HCL/PF 2% SDV 5ML VIAL ONE (07:24)
[2024-12-15 08:06] VITALS: RESP 16; TEMP 98
[2024-12-15] MEDS: IOHEXOL 180 MG/1 ML ML IJ ONE (08:40)
[2024-12-15] MEDS: LIDOCAINE HCL 1% PRESERVATIVE FREE - 30ML VIAL IJ ONE (08:40)
[2024-12-15] MEDS: DEXAMETHASONE SOD PHOSPHATE 10 MG/1 ML VIAL IVPUSH ONE (08:41)
[2024-12-15 08:52] VITALS: BP 142/92; PULSE 66
[2024-12-15] MEDS ORDERED: ACETAMINOPHEN 500 MG TABLET (FP) PO PRN (09:01)
== END 2024-12-15 09:04 | disposition home or self-care (01) ==
LOC: JASU-SURG 04:31
PROVIDERS: ATTEND Pain Medicine Pain Medicine
PROC: 3E0R3BZ Introduction of Anesthetic Agent into Spinal Canal, Percutaneous Approach (ICD-10-PCS; 2024-12-15)
PROC: 3E0R33Z Introduction of Anti-inflammatory into Spinal Canal, Percutaneous Approach (ICD-10-PCS; principal; 2024-12-15 09:15)
DX: M48.061 Spinal stenosis, lumbar region without neurogenic claudication (principal); M54.16 Radiculopathy, lumbar region
CPT/HCPCS: 76000-TC-FY; J1100

== ENCOUNTER 2025-01-03 11:01 | Emergency (ER) | payer OTHER ==
[2025-01-03 11:15] VITALS: BP 139/89; PULSE 76; RESP 20; TEMP 98.3; BMI 31.4
[2025-01-03] MEDS ORDERED: LIDOCAINE 5% TOPICAL PATCH ONE ×2 (11:33→11:37)
[2025-01-03] MEDS ORDERED: IBUPROFEN 400 MG TABLET (FP) PO ONE (11:33)
[2025-01-03] MEDS: LIDOCAINE 5% TOPICAL PATCH TP ONE (11:38)
[2025-01-03] MEDS: IBUPROFEN 400 MG TABLET (FP) PO ONE (11:39)
[2025-01-03] MEDS ORDERED: LIDOCAINE PATCH REMOVAL MC ONE (22:00)
== END 2025-01-03 12:02 | disposition home or self-care (01) ==
LOC: FER 11:01
DX: S96.212A Strain of intrinsic muscle and tendon at ankle and foot level, left foot, initial encounter (principal); M54.50 Low back pain, unspecified; W10.8XXA Fall (on) (from) other stairs and steps, initial encounter; Y93.02 Activity, running; Y35.811A Legal intervention involving manhandling, law enforcement official injured, initial encounter
CPT/HCPCS: 99283-25